=== PATIENT | male | born 1935 | race Caucasian/White ===

== ENCOUNTER → 2017-03-15 | Outpatient (CLI) | payer OTHER ==
[~2017-03-15] MED LIST: AMLO2.5T PO; CINN500C2 PO; DABI75CA3 PO; FINA5TAB4 PO; HYDR50TA3 PO; INSU100I13 SQ; LINA5TAB PO; LOSA1TAB17 PO; METO50TA82 PO
== END | disposition home or self-care (01) ==
LOC: CFH 15:14
PROVIDERS: ATTEND Internal Medicine Cardiovascular Disease
DX: I25.5 Ischemic cardiomyopathy (principal)
CPT/HCPCS: 93306

== ENCOUNTER 2017-08-08 08:34 | Inpatient (IN) | payer OTHER ==
[~2017-08-08] VITALS: Ht 172.7 cm; Wt 67.7 kg
[~2017-08-08 08:34] MED LIST changes: -LOSA1TAB17 PO; +LOSA1TAB22 PO
[2017-08-08 09:19] LABS: MEAN CORPUSCULAR HEMOGLOBIN 32.8 pg (27.5-34.5); MEAN CORPUSCULAR HGB CONC 34.1 g/dL (33.2-36.2); MEAN CORPUSCULAR VOLUME 96.1 fL (81-97); MEAN PLATELET VOLUME 8.7 fL (7.4-10.4); PLATELET COUNT 165 x10^3/uL (130-400); RED BLOOD COUNT 3.35 x10^6/uL (4.38-5.82); RED CELL DISTRIBUTION WIDTH 14.6 % (9.4-14.8)
[2017-08-08] MEDS ORDERED: SODIUM CHLORIDE FLUSH 10ML SYR IVF ONE (09:30)
[2017-08-08] MEDS ORDERED: SODIUM CHLORIDE 0.9% 1,000ML IVBOLUS ONE (09:30)
[2017-08-08 09:34] LABS: BASOPHILS # (AUTO) 0.01 x10^3/uL (0-0.1); BASOPHILS % (AUTO) 0 % (0-1); EOSINOPHILS # (AUTO) 0.12 x10^3/uL (0-0.4); EOSINOPHILS % (AUTO) 4 % (1-7); LYMPHOCYTES # (AUTO) 0.39 x10^3/uL (1-3.4); LYMPHOCYTES % (AUTO) 13 % (22-44); MD SCAN; MONOCYTES # (AUTO) 0.48 x10^3/uL (0.2-0.8); MONOCYTES % (AUTO) 17 % (2-9); NEUTROPHILS % (AUTO) 66 % (42-75)
[2017-08-08 10:06] LABS: ALANINE AMINOTRANSFERASE 28 U/L (12-78); ALBUMIN 3.3 g/dL (3.4-5.0); ANION GAP 9 mmol/L (5-15); CALCIUM 8.6 mg/dL (8.5-10.1); CHLORIDE 102 mmol/L (98-107)
[2017-08-08 10:11] LABS: ALKALINE PHOSPHATASE 93 U/L (45-117); CREATININE 2.02 mg/dL (0.7-1.3); TOTAL PROTEIN 7.3 g/dL (6.4-8.2); TROPONIN I 0.084 ng/mL (0.000-0.045)
[2017-08-08] MEDS ORDERED: CARV12.52 PO (10:15)
[2017-08-08] MEDS ORDERED: APIX2.5T PO (10:15)
[2017-08-08] MEDS ORDERED: FURO20TA3 PO (10:15)
[2017-08-08] MEDS ORDERED: TRIA15CR3 TP (10:15)
[2017-08-08] MEDS ORDERED: LITH5CAP PO (10:16)
[2017-08-08] MEDS ORDERED: POTA99TA3 PO (10:16)
[2017-08-08] MEDS ORDERED: CEFTRIAXONE PMX 1GM/50ML 50 ML ONE (10:43)
[2017-08-08] MEDS ORDERED: SODIUM CHLORIDE 0.9% 1,000 ML IV ONE (10:46)
[2017-08-08] MEDS ORDERED: CEFTRIAXONE PMX 1GM/50ML 50 ML IVPB ONE (11:00)
[2017-08-08] MEDS ORDERED: SODIUM CHLORIDE FLUSH 10ML SYR IVF PRN (11:00)
[2017-08-08] MEDS ORDERED: AZITHROMYCIN 500 MG in SODIUM CHLORIDE 0.9% 250 ML IV ONE (11:00)
[2017-08-08 11:56] VITALS: BP 188/82
[2017-08-08 12:37] VITALS: BP 175/81
[2017-08-08] MEDS ORDERED: HYDR-3343 PO (12:50)
[2017-08-08] MEDS ORDERED: hydrALAzine 20 MG/ML, 1ML IV PRN (13:00)
[2017-08-08] MEDS: LOSARTAN 50MG TABLET PO SCH (13:36)
[2017-08-08] MEDS: HYDROCHLOROTHIAZIDE 25 MG TABLET PO SCH (13:37)
[2017-08-08] MEDS ORDERED: hydrALAzine 20 MG/ML, 1ML IVPush PRN (14:00)
[2017-08-08] MEDS ORDERED: HYDROcodone/APAP 5/325 TABLET PO PRN (14:00)
[2017-08-08] MEDS ORDERED: ACETAMINOPHEN 325 MG TABLET PO PRN (14:00)
[2017-08-08] MEDS ORDERED: TRIAMCINOLONE CRM 0.1%, 15GM TP PRN (14:00)
[2017-08-08] MEDS ORDERED: morphine SULFATE 10 MG/ML, 1ML IVPush PRN (14:00)
[2017-08-08 15:19] VITALS: BP_SYST 142; BP_SYST 149; BP_SYST 151; BP_DIAS 53; BP_DIAS 58; BP_DIAS 59
[2017-08-08 16:16] LABS: TROPONIN I 0.087 ng/mL (0.000-0.045)
[2017-08-08] MEDS: INSULIN ASPART 100 UNITS/ML, PEN SQ-INSULIN SCH ×2 (16:18→19:49)
[2017-08-08] MEDS: FINASTERIDE 5 MG TABLET PO SCH (19:51)
[2017-08-08] MEDS: APIXABAN 2.5 MG TABLET PO SCH (19:51)
[2017-08-08 20:00] VITALS: BP 159/68
[2017-08-08 22:40] LABS: TROPONIN I 0.099 ng/mL (0.000-0.045)
[2017-08-09 01:08] VITALS: BP 160/72
[2017-08-09 05:56] LABS: CHLORIDE 104 mmol/L (98-107)
[2017-08-09 06:22] LABS: ANION GAP 9 mmol/L (5-15); CALCIUM 8.2 mg/dL (8.5-10.1); CREATININE 1.78 mg/dL (0.7-1.3)
[2017-08-09 07:13] LABS: MEAN CORPUSCULAR HEMOGLOBIN 32.5 pg (27.5-34.5); MEAN CORPUSCULAR HGB CONC 33.8 g/dL (33.2-36.2); MEAN CORPUSCULAR VOLUME 96.2 fL (81-97); MEAN PLATELET VOLUME 8.9 fL (7.4-10.4); PLATELET COUNT 151 x10^3/uL (130-400); RED BLOOD COUNT 2.94 x10^6/uL (4.38-5.82); RED CELL DISTRIBUTION WIDTH 14.6 % (9.4-14.8)
[2017-08-09] MEDS: INSULIN ASPART 100 UNITS/ML, PEN SQ-INSULIN SCH ×4 (07:31→20:27)
[2017-08-09 07:43] LABS: BASOPHILS # (AUTO) 0.03 x10^3/uL (0-0.1); BASOPHILS % (AUTO) 1 % (0-1); EOSINOPHILS % (AUTO) 4 % (1-7); LYMPHOCYTES # (AUTO) 0.47 x10^3/uL (1-3.4); LYMPHOCYTES % (AUTO) 20 % (22-44); MD SCAN; MONOCYTES # (AUTO) 0.47 x10^3/uL (0.2-0.8); MONOCYTES % (AUTO) 20 % (2-9); NEUTROPHILS # (AUTO) 1.33 x10^3/uL (1.8-6.8); NEUTROPHILS % (AUTO) 55 % (42-75)
[2017-08-09] MEDS: TEMPLATE NON-FORMULARY MED. (Linagliptin** (Tradjenta**) 5 MG) PO SCH (08:25)
[2017-08-09 08:34] VITALS: BP 175/71
[2017-08-09] MEDS: HYDROCHLOROTHIAZIDE 25 MG TABLET PO SCH (08:35)
[2017-08-09] MEDS: APIXABAN 2.5 MG TABLET PO SCH ×2 (08:36→20:26)
[2017-08-09] MEDS: FUROSEMIDE 40 MG TABLET PO SCH (08:36)
[2017-08-09] MEDS: LOSARTAN 50MG TABLET PO SCH (08:36)
[2017-08-09] MEDS ORDERED: LITHIUM ASPARTATE PO SCH (09:00)
[2017-08-09 10:56] LABS: TROPONIN I 0.091 ng/mL (0.000-0.045)
[2017-08-09] MEDS: INSULIN DETEMIR 100 UNITS/ML, PEN SQ-INSULIN SCH (11:02)
[2017-08-09] MEDS: CEFTRIAXONE PMX 1GM/50ML 50 ML IV SCH (11:05)
[2017-08-09] MEDS: AZITHROMYCIN 500 MG in SODIUM CHLORIDE 0.9% 250 ML IV SCH (11:08)
[2017-08-09] MEDS: POTASSIUM CHLORIDE 20 MEQ TAB.ER.PRT PO SCH ×2 (11:11→13:47)
[2017-08-09 13:19] VITALS: BP 134/60
[2017-08-09 18:35] VITALS: BP_SYST 182; BP_SYST 185; BP_DIAS 49; BP_DIAS 69
[2017-08-09] MEDS: FINASTERIDE 5 MG TABLET PO SCH (20:27)
[2017-08-10 00:55] VITALS: BP 165/43
[2017-08-10 06:02] LABS: MEAN CORPUSCULAR HEMOGLOBIN 32.4 pg (27.5-34.5); MEAN CORPUSCULAR HGB CONC 33.8 g/dL (33.2-36.2); MEAN CORPUSCULAR VOLUME 95.8 fL (81-97); MEAN PLATELET VOLUME 8.8 fL (7.4-10.4); PLATELET COUNT 155 x10^3/uL (130-400); RED BLOOD COUNT 3.08 x10^6/uL (4.38-5.82); RED CELL DISTRIBUTION WIDTH 14.5 % (9.4-14.8)
[2017-08-10 06:11] LABS: ANION GAP 8 mmol/L (5-15); CALCIUM 8.1 mg/dL (8.5-10.1); CHLORIDE 106 mmol/L (98-107); CREATININE 1.71 mg/dL (0.7-1.3)
[2017-08-10 06:28] LABS: BASOPHILS # (AUTO) 0.03 x10^3/uL (0-0.1); BASOPHILS % (AUTO) 1 % (0-1); EOSINOPHILS # (AUTO) 0.17 x10^3/uL (0-0.4); EOSINOPHILS % (AUTO) 8 % (1-7); LYMPHOCYTES # (AUTO) 0.71 x10^3/uL (1-3.4); LYMPHOCYTES % (AUTO) 32 % (22-44); MD SCAN; MONOCYTES # (AUTO) 0.39 x10^3/uL (0.2-0.8); MONOCYTES % (AUTO) 17 % (2-9); NEUTROPHILS # (AUTO) 0.96 x10^3/uL (1.8-6.8); NEUTROPHILS % (AUTO) 43 % (42-75)
[2017-08-10] MEDS: INSULIN ASPART 100 UNITS/ML, PEN SQ-INSULIN SCH ×4 (07:00→19:54)
[2017-08-10 07:52] VITALS: BP_SYST 172; BP_SYST 179; BP_SYST 180; BP_DIAS 64; BP_DIAS 66; BP_DIAS 76
[2017-08-10] MEDS: TEMPLATE NON-FORMULARY MED. (Linagliptin** (Tradjenta**) 5 MG) PO SCH (08:00)
[2017-08-10] MEDS: LOSARTAN 50MG TABLET PO SCH (08:01)
[2017-08-10] MEDS: FUROSEMIDE 40 MG TABLET PO SCH (08:01)
[2017-08-10] MEDS: HYDROCHLOROTHIAZIDE 25 MG TABLET PO SCH (08:01)
[2017-08-10] MEDS: INSULIN DETEMIR 100 UNITS/ML, PEN SQ-INSULIN SCH ×2 (08:02→09:00)
[2017-08-10 09:40] LABS: TROPONIN I 0.056 ng/mL (0.000-0.045)
[2017-08-10] MEDS: AZITHROMYCIN 500 MG in SODIUM CHLORIDE 0.9% 250 ML IV SCH (10:22)
[2017-08-10] MEDS: CEFTRIAXONE PMX 1GM/50ML 50 ML IV SCH (11:40)
[2017-08-10 14:30] VITALS: BP 159/52
[2017-08-10 19:58] VITALS: BP 153/61
[2017-08-10] MEDS: FINASTERIDE 5 MG TABLET PO SCH (20:01)
[2017-08-11 00:40] VITALS: BP 146/49
[2017-08-11 06:03] LABS: ANION GAP 8 mmol/L (5-15); CALCIUM 8.1 mg/dL (8.5-10.1); CHLORIDE 102 mmol/L (98-107); CREATININE 1.77 mg/dL (0.7-1.3)
[2017-08-11 06:04] LABS: BASOPHILS # (AUTO) 0.02 x10^3/uL (0-0.1); BASOPHILS % (AUTO) 1 % (0-1); EOSINOPHILS # (AUTO) 0.19 x10^3/uL (0-0.4); EOSINOPHILS % (AUTO) 6 % (1-7); LYMPHOCYTES # (AUTO) 0.64 x10^3/uL (1-3.4); LYMPHOCYTES % (AUTO) 20 % (22-44); MD NO; MEAN CORPUSCULAR HEMOGLOBIN 32.7 pg (27.5-34.5); MEAN CORPUSCULAR HGB CONC 34.1 g/dL (33.2-36.2); MEAN PLATELET VOLUME 9.3 fL (7.4-10.4); MONOCYTES # (AUTO) 0.44 x10^3/uL (0.2-0.8); MONOCYTES % (AUTO) 14 % (2-9); NEUTROPHILS # (AUTO) 1.95 x10^3/uL (1.8-6.8); NEUTROPHILS % (AUTO) 60 % (42-75); PLATELET COUNT 181 x10^3/uL (130-400); RED BLOOD COUNT 3.28 x10^6/uL (4.38-5.82); RED CELL DISTRIBUTION WIDTH 14.9 % (9.4-14.8)
[2017-08-11 08:10] VITALS: BP 169/66
[2017-08-11] MEDS: INSULIN DETEMIR 100 UNITS/ML, PEN SQ-INSULIN SCH (08:25)
[2017-08-11] MEDS ORDERED: GUAIFENESIN/DM 200-20MG, 10ML UDC PO PRN (08:30)
[2017-08-11] MEDS ORDERED: INSULIN DETEMIR 100 UNITS/ML, PEN SQ-INSULIN SCH (08:30)
[2017-08-11] MEDS: TEMPLATE NON-FORMULARY MED. (Linagliptin** (Tradjenta**) 5 MG) PO SCH (09:00)
[2017-08-11] MEDS: AZITHROMYCIN 500 MG in SODIUM CHLORIDE 0.9% 250 ML IV SCH (09:49)
[2017-08-11] MEDS: LOSARTAN 50MG TABLET PO SCH (09:50)
[2017-08-11] MEDS: HYDROCHLOROTHIAZIDE 25 MG TABLET PO SCH (09:50)
[2017-08-11] MEDS: POTASSIUM CHLORIDE 20 MEQ TAB.ER.PRT PO SCH ×2 (09:50→13:38)
[2017-08-11] MEDS: FUROSEMIDE 40 MG TABLET PO SCH (09:50)
[2017-08-11] MEDS: INSULIN ASPART 100 UNITS/ML, PEN SQ-INSULIN SCH ×4 (09:51→20:57)
[2017-08-11] MEDS: CEFTRIAXONE PMX 1GM/50ML 50 ML IV SCH (11:53)
[2017-08-11 13:47] VITALS: BP 163/58
[2017-08-11 20:00] VITALS: BP 150/67
[2017-08-11] MEDS: FINASTERIDE 5 MG TABLET PO SCH (21:00)
[2017-08-12 00:33] VITALS: BP 172/59
[2017-08-12 05:32] LABS: ANION GAP 6 mmol/L (5-15); CALCIUM 8.6 mg/dL (8.5-10.1); CHLORIDE 106 mmol/L (98-107)
[2017-08-12 05:35] LABS: CREATININE 1.54 mg/dL (0.7-1.3)
[2017-08-12 05:45] LABS: BASOPHILS # (AUTO) 0.01 x10^3/uL (0-0.1); BASOPHILS % (AUTO) 0 % (0-1); EOSINOPHILS # (AUTO) 0.27 x10^3/uL (0-0.4); EOSINOPHILS % (AUTO) 7 % (1-7); LYMPHOCYTES # (AUTO) 0.79 x10^3/uL (1-3.4); LYMPHOCYTES % (AUTO) 20 % (22-44); MD NO; MEAN CORPUSCULAR HEMOGLOBIN 32.8 pg (27.5-34.5); MEAN CORPUSCULAR HGB CONC 34.2 g/dL (33.2-36.2); MEAN CORPUSCULAR VOLUME 96.1 fL (81-97); MEAN PLATELET VOLUME 8.6 fL (7.4-10.4); MONOCYTES # (AUTO) 0.56 x10^3/uL (0.2-0.8); MONOCYTES % (AUTO) 14 % (2-9); NEUTROPHILS # (AUTO) 2.27 x10^3/uL (1.8-6.8); NEUTROPHILS % (AUTO) 58 % (42-75); PLATELET COUNT 189 x10^3/uL (130-400); RED BLOOD COUNT 3.21 x10^6/uL (4.38-5.82); RED CELL DISTRIBUTION WIDTH 14.8 % (9.4-14.8)
[2017-08-12] MEDS ORDERED: VANCOMYCIN PMX 1GM/200ML 200 ML ONE (06:45)
[2017-08-12] MEDS ORDERED: MIDAZOLAM 1 MG/ML, 5ML ONE (06:45)
[2017-08-12] MEDS ORDERED: FENTANYL PF 100 MCG/2ML ONE (06:45)
[2017-08-12] MEDS ORDERED: VANCOMYCIN 500 MG ONE (06:45)
[2017-08-12] MEDS ORDERED: LIDOCAINE 2%, 20ML ONE (06:45)
[2017-08-12] MEDS: INSULIN ASPART 100 UNITS/ML, PEN SQ-INSULIN SCH ×4 (07:00→20:52)
[2017-08-12] MEDS: TEMPLATE NON-FORMULARY MED. (Linagliptin** (Tradjenta**) 5 MG) PO SCH (07:38)
[2017-08-12] MEDS: INSULIN DETEMIR 100 UNITS/ML, PEN SQ-INSULIN SCH (07:38)
[2017-08-12] MEDS ORDERED: CARVEDILOL 12.5 MG TABLET PO ONE (10:00)
[2017-08-12] MEDS ORDERED: HYDROcodone/APAP 5/325 TABLET PO PRN (10:00)
[2017-08-12] MEDS: CARVEDILOL 12.5 MG TABLET PO SCH ×3 (10:30→17:35)
[2017-08-12 11:14] VITALS: BP 176/82
[2017-08-12] MEDS: FUROSEMIDE 40 MG TABLET PO SCH (11:17)
[2017-08-12] MEDS: HYDROCHLOROTHIAZIDE 25 MG TABLET PO SCH (11:17)
[2017-08-12] MEDS: SODIUM CHLORIDE FLUSH 10ML SYR IVF SCH ×2 (11:18→20:53)
[2017-08-12] MEDS: LOSARTAN 50MG TABLET PO SCH (11:18)
[2017-08-12 14:00] VITALS: BP 144/62
[2017-08-12 16:21] VITALS: BP 123/48
[2017-08-12 18:35] VITALS: BP 126/52
[2017-08-12] MEDS: FINASTERIDE 5 MG TABLET PO SCH (20:53)
[2017-08-13 00:22] VITALS: BP 156/72
[2017-08-13 05:34] LABS: BASOPHILS # (AUTO) 0.02 x10^3/uL (0-0.1); BASOPHILS % (AUTO) 0 % (0-1); EOSINOPHILS # (AUTO) 0.24 x10^3/uL (0-0.4); EOSINOPHILS % (AUTO) 5 % (1-7); LYMPHOCYTES # (AUTO) 0.75 x10^3/uL (1-3.4); LYMPHOCYTES % (AUTO) 17 % (22-44); MD NO; MEAN CORPUSCULAR HEMOGLOBIN 31.9 pg (27.5-34.5); MEAN CORPUSCULAR HGB CONC 33.4 g/dL (33.2-36.2); MEAN CORPUSCULAR VOLUME 95.6 fL (81-97); MONOCYTES # (AUTO) 0.66 x10^3/uL (0.2-0.8); MONOCYTES % (AUTO) 15 % (2-9); NEUTROPHILS # (AUTO) 2.84 x10^3/uL (1.8-6.8); NEUTROPHILS % (AUTO) 63 % (42-75); PLATELET COUNT 210 x10^3/uL (130-400); RED BLOOD COUNT 3.23 x10^6/uL (4.38-5.82); RED CELL DISTRIBUTION WIDTH 14.9 % (9.4-14.8)
[2017-08-13 05:43] LABS: ALBUMIN 2.9 g/dL (3.4-5.0); ANION GAP 9 mmol/L (5-15); CALCIUM 8.3 mg/dL (8.5-10.1); CHLORIDE 101 mmol/L (98-107)
[2017-08-13 05:47] LABS: ALANINE AMINOTRANSFERASE 27 U/L (12-78); ALKALINE PHOSPHATASE 87 U/L (45-117); BILIRUBIN,TOTAL 0.9 mg/dL (0.2-1.0); CREATININE 1.85 mg/dL (0.7-1.3); TOTAL PROTEIN 6.8 g/dL (6.4-8.2)
[2017-08-13 06:29] VITALS: BP 166/75
[2017-08-13] MEDS: CARVEDILOL 12.5 MG TABLET PO SCH ×2 (06:29→08:21)
[2017-08-13 06:45] VITALS: BP 158/69
[2017-08-13] MEDS: INSULIN ASPART 100 UNITS/ML, PEN SQ-INSULIN SCH ×2 (08:19→13:11)
[2017-08-13] MEDS: INSULIN DETEMIR 100 UNITS/ML, PEN SQ-INSULIN SCH (08:20)
[2017-08-13] MEDS: LOSARTAN 50MG TABLET PO SCH (08:21)
[2017-08-13] MEDS: FUROSEMIDE 40 MG TABLET PO SCH (08:21)
[2017-08-13] MEDS: HYDROCHLOROTHIAZIDE 25 MG TABLET PO SCH (08:21)
[2017-08-13] MEDS: TEMPLATE NON-FORMULARY MED. (Linagliptin** (Tradjenta**) 5 MG) PO SCH (09:00)
[2017-08-13] MEDS ORDERED: CEFTRIAXONE PMX 1GM/50ML 50 ML IV SCH (09:00)
[2017-08-13] MEDS ORDERED: CEFTRIAXONE 1,000 MG in DEXTROSE 5% 50 ML IV SCH (09:00)
[2017-08-13] MEDS ORDERED: AZITHROMYCIN 500 MG in SODIUM CHLORIDE 0.9% 250 ML IV SCH (09:00)
[2017-08-13] MEDS: SODIUM CHLORIDE FLUSH 10ML SYR IVF SCH (10:26)
== END 2017-08-13 14:14 | disposition home or self-care (01) | DRG 242 ==
LOC: ED 10:09 → EDIP 10:46 → 5SO 11:28
PROVIDERS: ADMIT Hospitalist; ATTEND Family Medicine
PROC: 0JH604Z Insertion of Pacemaker, Single Chamber into Chest Subcutaneous Tissue and Fascia, Open Approach (ICD-10-PCS; principal; 2017-08-12)
PROC: 02HK3JZ Insertion of Pacemaker Lead into Right Ventricle, Percutaneous Approach (ICD-10-PCS; 2017-08-12)
DX: I48.1 Persistent atrial fibrillation (principal); J18.9 Pneumonia, unspecified organism; N17.9 Acute kidney failure, unspecified; I13.0 Hypertensive heart and chronic kidney disease with heart failure and stage 1 through stage 4 chronic kidney disease, or unspecified chronic kidney disease; E11.22 Type 2 diabetes mellitus with diabetic chronic kidney disease; I24.8 Other forms of acute ischemic heart disease; I50.22 Chronic systolic (congestive) heart failure; I42.9 Cardiomyopathy, unspecified; E87.1 Hypo-osmolality and hyponatremia; I08.1 Rheumatic disorders of both mitral and tricuspid valves; R00.1 Bradycardia, unspecified; D72.819 Decreased white blood cell count, unspecified; I25.10 Atherosclerotic heart disease of native coronary artery without angina pectoris; E87.6 Hypokalemia; I25.5 Ischemic cardiomyopathy; I48.2 Chronic atrial fibrillation; N18.3 Chronic kidney disease, stage 3 (moderate); N40.0 Benign prostatic hyperplasia without lower urinary tract symptoms; T50.2X5A Adverse effect of carbonic-anhydrase inhibitors, benzothiadiazides and other diuretics, initial encounter; Z79.4 Long term (current) use of insulin; Z79.899 Other long term (current) drug therapy; Z82.49 Family history of ischemic heart disease and other diseases of the circulatory system; Z86.73 Personal history of transient ischemic attack (TIA), and cerebral infarction without residual deficits; Z87.891 Personal history of nicotine dependence; Z88.0 Allergy status to penicillin
CPT/HCPCS: 33207; 36415; 71010; 80048; 80053; 82947; 82962; 83605; 83690; 83735; 84100; 84145; 84439; 84443; 84484; 85025; 87040; 87070; 87205; 87449; 93005; 93306; 99156; 99157; 99285; C1779; C1786; C1892; J0456; J0696; J1815; J2250; J3010; J3370; J3490; J7030; J7050

== ENCOUNTER 2018-09-10 16:11 | Inpatient (IN) | payer MEDICARE, OTHER ==
[~2018-09-10] VITALS: Ht 172.7 cm; Wt 68.0 kg
[~2018-09-10 16:11] MED LIST changes: -AMLO2.5T PO; +AMLO2.5T5 PO; +APIX2.5T PO; +CARV12.52 PO; +FURO20TA3 PO; +HYDR-3343 PO; +LITH5CAP PO; +POTA99TA3 PO; +TRIA15CR3 TP
--- NOTE | 2018-09-10 16:39 | NUR ---
LATE NOTE ENTRY FOR 1636: Pt brought in by EMS with c/o by pt's family of neuro defecits and aphasia. Pt responsive to painful stimulation. Pt is non-verbal at this time. Pt is 92% on room air and has unlabored respirations equal bilaterally. Pt incontinent of urine. EDMD assessing for stroke at bedside. Pt has left sided defecits. Pt's gaze deviates to the upper left. Pt connected to all monitors. All safety measures in place. Pt has pacemaker in place prior to arrival. Pt changed into hospital gown, incontinence pad placed underneath pt. Pt is afebrile with rectal temp of 97.6. PIV established prior to arrival. Warm blanket provided for comfort measures. Family at bedside states last known normal baseline for pt was at 1100 on 09/09/16. No needs requested at this time. Call light within reach of family.
[2018-09-10] MEDS ORDERED: SODIUM CHLORIDE FLUSH 10ML SYR IVF ONE (17:00)
[2018-09-10 17:10] LABS: BASOPHILS # (AUTO) 0.03 x10^3/uL (0-0.1); BASOPHILS % (AUTO) 0 % (0-1); EOSINOPHILS # (AUTO) 0.01 x10^3/uL (0-0.4); EOSINOPHILS % (AUTO) 0 % (1-7); LYMPHOCYTES # (AUTO) 0.39 x10^3/uL (1-3.4); LYMPHOCYTES % (AUTO) 6 % (22-44); MD NO; MEAN CORPUSCULAR HEMOGLOBIN 33.1 pg (27.5-34.5); MEAN CORPUSCULAR HGB CONC 34.2 g/dL (33.2-36.2); MEAN CORPUSCULAR VOLUME 96.8 fL (81-97); MEAN PLATELET VOLUME 8.6 fL (7.4-10.4); MONOCYTES % (AUTO) 8 % (2-9); NEUTROPHILS # (AUTO) 5.24 x10^3/uL (1.8-6.8); NEUTROPHILS % (AUTO) 85 % (42-75); PLATELET COUNT 219 x10^3/uL (130-400); RED BLOOD COUNT 3.51 x10^6/uL (4.38-5.82); RED CELL DISTRIBUTION WIDTH 14.2 % (9.4-14.8)
[2018-09-10 17:18] LABS: INTERNATIONAL NORMALIZED RATIO 1.08 (0.93-1.1); PROTHROMBIN TIME 11.4 Seconds (9.6-11.5)
[2018-09-10 17:22] LABS: ALANINE AMINOTRANSFERASE 22 U/L (12-78); ALBUMIN 3.6 g/dL (3.4-5.0); ANION GAP 9 mmol/L (5-15); CALCIUM 8.6 mg/dL (8.5-10.1); CHLORIDE 108 mmol/L (98-107); CREATININE 1.44 mg/dL (0.7-1.3)
[2018-09-10 17:39] LABS: ALKALINE PHOSPHATASE 91 U/L (45-117); BILIRUBIN,TOTAL 1.2 mg/dL (0.2-1.0); TOTAL PROTEIN 7.5 g/dL (6.4-8.2)
[2018-09-10 17:44] LABS: TROPONIN I 0.165 ng/mL (0.000-0.045)
--- NOTE | 2018-09-10 17:48 | NUR ---
Straight cath perfromed without complications. UA sent to lab. Pt responds to verbal stimuli, opens eyes, and smiled. Pt has right sided facial droop upon smiling.
[2018-09-10 17:56] LABS: ACETONE, SERUM Small (20mg/dL) mg/dL (Negative)
[2018-09-10 18:00] LABS: MICROSCOPIC INDICATED
[2018-09-10 18:08] LABS: AMPHETAMINE SCREEN, URINE Negative (Negative); BARBITURATE SCREEN, URINE Negative (Negative); BENZODIAZEPINE SCREEN, URINE Negative (Negative); CANNABINOID SCREEN, URINE Negative (Negative); COCAINE SCREEN, URINE Negative (Negative); METHADONE SCREEN, URINE Negative (Negative); OPIATE SCREEN, URINE Negative (Negative)
[2018-09-10 18:12] LABS: CULTURE INDICATED? NO
[2018-09-10] MEDS ORDERED: OMNIPAQUE 350 MG/ML, 100ML BOTTLE ONE (18:20)
--- NOTE | 2018-09-10 18:35 | NUR ---
Family will provide medication list of pt's home meds when they have it available. Pt unable to verbally respond due to aphasia.
--- NOTE | 2018-09-10 19:05 | NUR ---
Provided bedside report to REYMUNDO Carrion. All questions answered.
--- NOTE | 2018-09-10 19:14 | NUR ---
report to raeann jalloh for room 404-1. there is no bed in room currently. 4th floor sup is working on it.
[2018-09-10] MEDS ORDERED: ONDANSETRON 2MG/ML, 2ML IVPush PRN (20:00)
[2018-09-10] MEDS ORDERED: LABETALOL 5MG/ML, 20ML IV PRN (20:00)
[2018-09-10] MEDS ORDERED: LIDODERM 5% PATCH TD PRN (20:00)
[2018-09-10] MEDS ORDERED: BISACODYL 10 MG SUPP PR PRN (20:00)
[2018-09-11 01:42] VITALS: BP 161/64
[2018-09-11 05:45] LABS: CHOL/HDL RATIO 3.1; LDL/HDL RATIO 1.7 (0.5-3.0)
[2018-09-11 06:39] VITALS: BP 174/68
[2018-09-11 08:43] LABS: BASOPHILS # (AUTO) 0.02 x10^3/uL (0-0.1); BASOPHILS % (AUTO) 0 % (0-1); EOSINOPHILS # (AUTO) 0.05 x10^3/uL (0-0.4); EOSINOPHILS % (AUTO) 1 % (1-7); LYMPHOCYTES # (AUTO) 0.41 x10^3/uL (1-3.4); LYMPHOCYTES % (AUTO) 6 % (22-44); MD NO; MEAN CORPUSCULAR HEMOGLOBIN 32.5 pg (27.5-34.5); MEAN CORPUSCULAR HGB CONC 33.4 g/dL (33.2-36.2); MEAN CORPUSCULAR VOLUME 97.3 fL (81-97); MEAN PLATELET VOLUME 8.2 fL (7.4-10.4); MONOCYTES # (AUTO) 0.79 x10^3/uL (0.2-0.8); MONOCYTES % (AUTO) 11 % (2-9); NEUTROPHILS # (AUTO) 5.87 x10^3/uL (1.8-6.8); NEUTROPHILS % (AUTO) 82 % (42-75); PLATELET COUNT 230 x10^3/uL (130-400); RED CELL DISTRIBUTION WIDTH 14.7 % (9.4-14.8)
[2018-09-11 08:54] LABS: ALANINE AMINOTRANSFERASE 19 U/L (12-78); ALBUMIN 3.4 g/dL (3.4-5.0); ANION GAP 8 mmol/L (5-15); CALCIUM 9.1 mg/dL (8.5-10.1); CHLORIDE 109 mmol/L (98-107)
[2018-09-11 08:58] LABS: ALKALINE PHOSPHATASE 89 U/L (45-117); BILIRUBIN,TOTAL 1.3 mg/dL (0.2-1.0); CREATININE 1.43 mg/dL (0.7-1.3); TOTAL PROTEIN 7.3 g/dL (6.4-8.2); TROPONIN I 0.139 ng/mL (0.000-0.045)
[2018-09-11] MEDS: ASPIRIN 81 MG TABLET CHEW PO/NG SCH (09:00)
[2018-09-11 10:33] LABS: HEMOGLOBIN A1C 7.7 % (4.2-6.3)
[2018-09-11 12:24] VITALS: BP 165/72
[2018-09-11 19:55] VITALS: BP 169/68
[2018-09-12 02:41] VITALS: BP 153/62
[2018-09-12 07:34] VITALS: BP 149/58
[2018-09-12] MEDS: morphine SULFATE 10 MG/ML, 1ML IVPush PRN ×4 (08:58→18:41)
[2018-09-12] MEDS: ASPIRIN 81 MG TABLET CHEW PO/NG SCH (09:00)
[2018-09-12 21:11] VITALS: BP 181/76
[2018-09-13] MEDS ORDERED: MORPHINE SULFATE 4 MG/ML, 1ML ONE ×2 (02:35→06:36)
[2018-09-13] MEDS: morphine SULFATE 10 MG/ML, 1ML IVPush PRN ×2 (02:38→06:39)
[2018-09-13 02:55] VITALS: BP 177/74
[2018-09-13 08:25] VITALS: BP 182/77
[2018-09-13] MEDS ORDERED: ASPIRIN 300 MG SUPP PR SCH (09:00)
[2018-09-13] MEDS: ASPIRIN 81 MG TABLET CHEW PO/NG SCH (09:00)
[2018-09-13] MEDS ORDERED: SCOPOLAMINE PATCH, 1.5MG PATCH.TD72 TD SCH (12:30)
[2018-09-13] MEDS ORDERED: LORazepam 2 MG/ML, 1ML IVPush PRN (12:30)
[2018-09-13] MEDS ORDERED: MORPHINE SULFATE 4 MG/ML, 1ML IVPush PRN (12:30)
[2018-09-13] MEDS: LORazepam 2 MG/ML, 1ML IVPush PRN (14:45)
[2018-09-13] MEDS: MORPHINE SULFATE 4 MG/ML, 1ML IVPush PRN ×2 (19:46→22:55)
[2018-09-13] MEDS ORDERED: HYDROcodone/APAP 5/325 TABLET PO PRN (21:30)
[2018-09-13] MEDS: ATROPINE OPHTH SOLN 1%, 2ML BC PRN (22:55)
[2018-09-14] MEDS: ATROPINE OPHTH SOLN 1%, 2ML BC PRN ×2 (01:51→03:49)
[2018-09-14] MEDS: MORPHINE SULFATE 4 MG/ML, 1ML IVPush PRN ×3 (01:51→05:57)
[2018-09-14] MEDS: LORazepam 2 MG/ML, 1ML IVPush PRN (08:01)
== END 2018-09-14 20:39 | disposition expired | DRG 64 ==
LOC: ED 18:47 → EDIP 19:13 → 4WST 19:49 → 3NW 09-12 10:53
PROVIDERS: ADMIT Internal Medicine; ATTEND Internal Medicine
PROC: 0T9B70Z Drainage of Bladder with Drainage Device, Via Natural or Artificial Opening (ICD-10-PCS; principal; 2018-09-10)
DX: I63.512 Cerebral infarction due to unspecified occlusion or stenosis of left middle cerebral artery (principal); G93.41 Metabolic encephalopathy; I50.42 Chronic combined systolic (congestive) and diastolic (congestive) heart failure; N17.9 Acute kidney failure, unspecified; I48.2 Chronic atrial fibrillation; R47.01 Aphasia; D63.8 Anemia in other chronic diseases classified elsewhere; E11.9 Type 2 diabetes mellitus without complications; E78.00 Pure hypercholesterolemia, unspecified; E78.5 Hyperlipidemia, unspecified; G83.21 Monoplegia of upper limb affecting right dominant side; I11.0 Hypertensive heart disease with heart failure; I25.2 Old myocardial infarction; I25.5 Ischemic cardiomyopathy; I49.5 Sick sinus syndrome; J32.9 Chronic sinusitis, unspecified; I65.22 Occlusion and stenosis of left carotid artery; Z51.5 Encounter for palliative care; R32 Unspecified urinary incontinence; Z66 Do not resuscitate; Z79.01 Long term (current) use of anticoagulants; Z79.4 Long term (current) use of insulin; Z86.73 Personal history of transient ischemic attack (TIA), and cerebral infarction without residual deficits; Z95.0 Presence of cardiac pacemaker; Z87.01 Personal history of pneumonia (recurrent)
CPT/HCPCS: 0399T; 36415; 70450; 70496; 70498; 71045; 80053; 80061; 80307; 81001; 82010; 82140; 82962; 83036; 83605; 83735; 84100; 84484; 85025; 85610; 85730; 87040; 93005; 93306; 99291; G0378; J2270; Q9967; J2060